=== PATIENT | male | born 1980 | race Caucasian/White ===

== ENCOUNTER 2022-10-12 20:04 | Emergency (ER) | payer SELFPAY ==
[2022-10-12] MEDS ORDERED: Bacitracin Oint 28.35 GM Tube TOP ONE (21:26)
== END 2022-10-12 22:15 | disposition home or self-care (01) ==
LOC: JP.ED 20:04
DX: S01.422A Laceration with foreign body of left cheek and temporomandibular area, initial encounter (principal); S40.212A Abrasion of left shoulder, initial encounter; Z88.0 Allergy status to penicillin; V86.56XA Driver of dirt bike or motor/cross bike injured in nontraffic accident, initial encounter
CPT/HCPCS: 12052; 99283; A9270